=== PATIENT | female | born 1970 ===

== ENCOUNTER 2023-02-11 15:57 | Outpatient (REF) | payer BC, SELFPAY ==
[2023-02-11 19:11] LABS: HCT 43.6 % (36.0-46.0); HGB 14.7 g/dL (11.2-15.7); MCH 30.6 pg (27.0-33.0); MCHC 33.7 % (32.0-36.0); MCV 91 fL (80-95); Platelet Count 247 10^3/uL (130-400); RBC 4.81 10^6/uL (3.93-5.22); RDW 11.6 % (11.7-14.6); RDW-SD 38.5 fL; WBC 7.34 10^3/uL (4.4-10.8)
[2023-02-11 19:29] LABS: ALT 32 U/L (14-59); AST 25 U/L (15-37); Albumin 4.1 g/dL (3.4-5.0); Alkaline Phosphatase 86 U/L (46-116); Anion Gap 10.1 mmol/L (3-11); BUN 16 mg/dL (7-18); Bilirubin, Total 0.5 mg/dL (0.2-1.0); CO2 27.9 mmol/L (21.0-32.0); CREATININE 0.8 mg/dL (0.55-1.02); Calcium 9.9 mg/dL (8.5-10.1); Calculated LDL 123 mg/dL (<100); Chloride 103 mmol/L (98-107); Cholesterol 191 mg/dL (<200); Estimated GFR 88.05 (mL/min/1.73m2); Glucose 89 mg/dL (74-106); HDL Cholesterol 50 mg/dL (40-60); Sodium 141 mmol/L (136-145); Total Protein 7.3 g/dL (6.4-8.2); Triglyceride 92 mg/dL (<150)
[2023-02-11 20:39] LABS: Hemoglobin A1C 5.5 % (<5.7)
== END 2023-02-11 15:58 | disposition home or self-care (01) ==
LOC: NCHCN 15:57
PROVIDERS: PCP Nurse Practitioner Family; Visit Provider Nurse Practitioner Family
DX: I25.10 Atherosclerotic heart disease of native coronary artery without angina pectoris (principal); R73.03 Prediabetes; R23.8 Other skin changes
CPT/HCPCS: 80053; 80061; 85027; 83036